=== PATIENT | female | born 1975 | race Caucasian/White ===

== ENCOUNTER → 2022-11-29 | Outpatient (CLI) | payer MEDICAID, OTHER ==
--- NOTE | 2022-11-29 10:22 | Diagnostic Imaging Report ---
INDICATION: Foot pain EXAMINATION: Right foot 11/29/2022 FINDINGS: 3 views of the foot. There are no acute fractures or dislocations. The joint spaces appear maintained. Soft tissues unremarkable. IMPRESSION: 1. No acute osseous abnormality. Dictated by: Dictated on workstation # [id number]
== END ==
LOC: RAD FS 09:11
PROVIDERS: ATTEND Nurse Practitioner
DX: M79.671 Pain in right foot (principal)
CPT/HCPCS: 73630